=== PATIENT | female | born 1940 | race Caucasian/White ===

== ENCOUNTER 2020-08-15 14:43 | Inpatient (IN) ==
[2020-08-15] MEDS ORDERED: ATROPINE SULFATE PFS IVP PRN (15:07)
[2020-08-15] MEDS ORDERED: NITROSTAT SL PRN (15:07)
[2020-08-15] MEDS ORDERED: TYLENOL PO PRN (15:07)
[2020-08-15] MEDS ORDERED: VISTARIL INJ IM PRN (15:07)
[2020-08-15] MEDS ORDERED: TORADOL IVP STA (15:25)
[2020-08-15] MEDS ORDERED: SOLU-CORTEF 250 MG IVP SCH (15:35)
[2020-08-15] MEDS ORDERED: SOLU-CORTEF 250 MG IVP STA (15:36)
[2020-08-15 15:43] VITALS: BMI 31.1
[2020-08-15 16:23] LABS: BASOPHILS % (AUTO) 0.6 % (0.0-3.0); EOSINOPHILS # (AUTO) 0.5 K/ul (0.0-0.7); EOSINOPHILS % (AUTO) 7.2 % (0.0-7.0); HEMATOCRIT 40.5 % (37.0-47.0); HEMOGLOBIN 12.5 g/dl (12.0-16.0); IMMATURE GRANULOCYTE % (AUTO) 0.2 % (0.0-5.0); LYMPHOCYTES # (AUTO) 1.2 K/uL (0.60-3.4); MEAN CORPUSCULAR HEMOGLOBIN 25.8 pg (27.0-31.0); MEAN CORPUSCULAR HGB CONC 30.9 (31.8-35.4); MEAN CORPUSCULAR VOLUME 83.7 fl (81.0-99.0); MONOCYTES # (AUTO) 0.4 K/uL (0.4-2.0); MONOCYTES % (AUTO) 6.8 (0-10); NEUTROPHILS # (AUTO) 4.2 K/ul (2.0-6.9); NEUTROPHILS % (AUTO) 66.2 % (42.2-75.2); PLATELET COUNT 284 10^3/uL (140-440); RDW COEFFICIENT OF VARIATION 15.3 % (11.6-14.8); RED BLOOD COUNT 4.84 10^6/ul (4.20-5.40); WHITE BLOOD COUNT 6.36 K/ul (4.6-10.2)
[2020-08-15 16:34] LABS: ALANINE AMINOTRANSFERASE 10.8 U/L (0-35); ALBUMIN 4.02 g/dL (3.5-5.0); ALKALINE PHOSPHATASE 65.8 U/L (53-141); BILIRUBIN,TOTAL 0.66 mg/dL (0.2-1.3); BLOOD UREA NITROGEN 15.1 mg/dL (7-17); CALCIUM 9.21 mg/dL (8.4-10.2); CARBON DIOXIDE 30.7 mmol/L (22-30.0); CHLORIDE 100.1 mmol/L (98-107); CREATINE KINASE 31.3 U/L (30-135); CREATININE 0.81 mg/dL (0.60-1.30); GLUCOSE 94.1 mg/dL (74-106); POTASSIUM 3.65 mmol/L (3.5-5.1); SODIUM 138.3 mmol/L (134.5-145); TOTAL PROTEIN 7.67 g/dL (6.3-8.2)
[2020-08-15 16:46] LABS: TROPONIN I < 0.012 ng/ml (0.0000-0.120)
[2020-08-15 16:59] LABS: ERYTHROCYTE SEDIMENTATION RATE 28 mm/hr (0-20)
[2020-08-15] MEDS: COREG PO SCH (17:39)
[2020-08-15] MEDS: ZITHROMAX PO SCH (17:39)
[2020-08-15] MEDS: PROTONIX PO SCH (17:39)
[2020-08-15] MEDS ORDERED: TORADOL ONE (17:40)
[2020-08-15] MEDS: ROCEPHIN 1 GM/50 ML D5W 1 GM/50 ML BAG IV SCH (17:41)
[2020-08-15] MEDS ORDERED: SOLU-CORTEF 250 MG ONE (17:41)
--- NOTE | 2020-08-15 18:06 | CT ---
EXAM: CT chest with and without contrast HISTORY: Loculated pleural fluid COMPARISON: CT chest and 10/15/2020 TECHNIQUE: Serial axial images of the chest were obtained after 75 ml of Omnipaque IV contrast was a dministered. These were obtained from the lung apices to the upper abdomen. FINDINGS: The thyroid is normal. Visualized vessels are unremarkable. There is no dissection, aneu rysm or stenosis. The heart is normal in size without pericardial effusion. There are nonenlarged m ediastinal and hilar lymph nodes. There are calcified mediastinal lymph nodes present. There is no pneumothorax. There is a loculated moderate left pleural effusion. There is consolidati on in the left lower lobe and consolidation in the left upper lobe. This is unchanged. The airways are patent. Limited views of the soft tissues in the upper abdomen are unremarkable. There is multilevel degene rative disease of the spine. IMPRESSION: 1. No change in moderate left loculated effusion unchanged from prior examination. There is unchang ed adjacent atelectasis/consolidation in the left lower lobe and left upper lobe. 2. No significant interval change.
[2020-08-15 20:23] LABS: BILIRUBIN,URINE Negative (NEGATIVE); CLARITY,URINE Slightly (CLEAR); COLOR,URINE Yellow (YELLOW); GLUCOSE, URINE (UA) Negative (NEGATIVE); KETONES,URINE Negative (NEGATIVE); LEUKOCYTE ESTERASE ,URINE Trace (NEGATIVE); NITRITE,URINE Positive (NEGATIVE); PROTEIN,URINE Negative (NEGATIVE); URINE, BLOOD Negative (NEGATIVE); UROBILINOGEN,URINE 0.2 (0.2)
[2020-08-15] MEDS: PRAVACHOL PO SCH (20:23)
[2020-08-15 20:31] LABS: BACTERIA,URINE 2+ (NOT PRESENT)
[2020-08-15] MEDS: SOLU-CORTEF 250 MG IVP SCH (23:38)
[2020-08-15 23:54] LABS: CREATINE KINASE 33.1 U/L (30-135)
[2020-08-16 00:08] LABS: TROPONIN I < 0.012 ng/ml (0.0000-0.120)
[2020-08-16] MEDS: SYNTHROID PO SCH (05:57)
[2020-08-16] MEDS: PROTONIX PO SCH ×2 (05:57→17:03)
[2020-08-16] MEDS: SOLU-CORTEF 250 MG IVP SCH ×2 (06:00→13:39)
[2020-08-16 06:07] LABS: BASOPHILS % (AUTO) 0.2 % (0.0-3.0); EOSINOPHILS % (AUTO) 0.2 % (0.0-7.0); HEMATOCRIT 36.7 % (37.0-47.0); HEMOGLOBIN 11.5 g/dl (12.0-16.0); IMMATURE GRANULOCYTE % (AUTO) 0.2 % (0.0-5.0); LYMPHOCYTES # (AUTO) 0.7 K/uL (0.60-3.4); LYMPHOCYTES % (AUTO) 11.8 (10.0-50.0); MEAN CORPUSCULAR HEMOGLOBIN 26.1 pg (27.0-31.0); MEAN CORPUSCULAR HGB CONC 31.3 (31.8-35.4); MEAN CORPUSCULAR VOLUME 83.2 fl (81.0-99.0); MONOCYTES # (AUTO) 0.1 K/uL (0.4-2.0); MONOCYTES % (AUTO) 1.2 (0-10); NEUTROPHILS # (AUTO) 5.1 K/ul (2.0-6.9); NEUTROPHILS % (AUTO) 86.4 % (42.2-75.2); PLATELET COUNT 265 10^3/uL (140-440); RDW COEFFICIENT OF VARIATION 14.9 % (11.6-14.8); RED BLOOD COUNT 4.41 10^6/ul (4.20-5.40); WHITE BLOOD COUNT 5.85 K/ul (4.6-10.2)
[2020-08-16 06:18] LABS: ALANINE AMINOTRANSFERASE 12.2 U/L (0-35); ALBUMIN 3.85 g/dL (3.5-5.0); ALKALINE PHOSPHATASE 60.1 U/L (53-141); ASPARTATE AMINO TRANSFERASE 18.9 U/L (14-36); CALCIUM 9.09 mg/dL (8.4-10.2); CARBON DIOXIDE 29.5 mmol/L (22-30.0); CHLORIDE 97.5 mmol/L (98-107); CREATININE 0.84 mg/dL (0.60-1.30); GLUCOSE 148.5 mg/dL (74-106); POTASSIUM 3.88 mmol/L (3.5-5.1); SODIUM 135.8 mmol/L (134.5-145); TOTAL PROTEIN 7.36 g/dL (6.3-8.2)
[2020-08-16 06:19] LABS: BILIRUBIN,TOTAL 0.49 mg/dL (0.2-1.3)
[2020-08-16] MEDS: ROCEPHIN 1 GM/50 ML D5W 1 GM/50 ML BAG IV SCH (08:17)
[2020-08-16] MEDS: HYDROCHLOROTHIAZIDE PO SCH (08:18)
[2020-08-16] MEDS: ASPIRIN EC PO SCH (08:18)
[2020-08-16] MEDS: ZITHROMAX PO SCH (08:18)
[2020-08-16] MEDS: MICARDIS PO SCH (08:19)
[2020-08-16] MEDS: COREG PO SCH ×2 (08:19→17:04)
--- NOTE | 2020-08-16 10:21 | HP ---
DATE OF SERVICE: 08/15/2020 REASON FOR HOSPITALIZATION/HISTORY OF PRESENT ILLNESS: Left sided pleuritic type pain. 8 weeks. Pain all the time. Unable to sleep in bed. Shortness of breath with exertion. Deep breath hurts. No signs of symptoms of CHF/CAD/COVID. The patient has lost 2 pounds. PAST MEDICAL HISTORY: History of left bundle branch block Hypertension LVH Hypothyroidism Diabetes mellitus type 2 Dyslipidemia Vitamin B 12 deficiency MET syndrome Left sciatica REVIEW OF SYSTEMS: CONSTITUTIONAL: No fever, no fatigue. HEENT: No sinus drainage, no sore throat. RESPIRATORY: Cough- mild it hurts, no congestion. CARDIOVASCULAR: Atypical chest pain for coronary artery disease. No angina, CHF symptoms, palpitations. Shortness of breath. GASTROINTESTINAL: No melena or abdominal pain. No GERD. Appetite is good. Sense of taste and smell is normal. GENITOURINARY: No hematuria, no prostatism, no polyuria. GRAIN OILSEED OR PASTURE GROWER: No blackout, no dizziness, no headache, no double vision. MUSCULOSKELETAL: Osteoarthritis pain, no joint swelling. ENDOCRINE: No weight loss, Weight gain, one pound in 6 weeks. SKIN: Not dry, no rash. PSYCHIATRIC: Not anxious, no depression, no suicidal thoughts, no homicidal thoughts. SOCIAL HISTORY: Marital Status: . Alcohol Usage: No. Tobacco Usage: No. FAMILY HISTORY: Father Mother Brother 1 Sister 3 MEDICATIONS: Coreg 6.25mg BID Levothyroxine 50mcg daily Pravastatin 20mg daily Protonix 40mg PO daily ALLERGIES: No known allergies PHYSICAL EXAMINATION: V/S: Pulse 68, blood pressure 152/78, temperature 97.7, oxygen saturation 94%. BMI 30.4, height 5'5, weight 182.8 pounds. GENERAL APPEARANCE: Oriented times three. HEENT: Normal. NECK: No JVP, no bruits. RESPIRATORY: Lungs are clear. CARDIOVASCULAR: S1, S2, no S3, no murmur. No cyanosis, clubbing. No ascites. GI/ABDOMEN: No tenderness. Bowel sounds are active. EXTREMITIES: edema, pulses +1, equal. GRAIN OILSEED OR PASTURE GROWER: Deep tendon reflexes, sensory, motor and gait all normal. RECTAL: 03/2020 Dr. Peters. ASSESSMENT: 1. Left sided chest pain 2. Pleuritic pain left sided/atelectasis/Loculated left pleural fluid. 3. Refuses stress test 4. Esophageal spasms 5. Chest pain 6. GERD 7. History of left bundle branch block 8. Hypothyroidism 9. 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 Seen again 07/31/2020 same problem. PLAN: 1. Admit 2. Routine telemetry orders 3. 30mg Toradol IV one time now 4. Solu-Cortef 125mg now and 8 hourly 5. Rocephin 1 gram I V today and in AM 6. Coreg 6.25mg PO BID 7. Micardis 40mg PO BID 8. Levothyroxine 50mcg PO daily 9. Protonix 40mg BID 10.Pravastatin 20mg PO daily 11.Echo 12.Call for Pulmonary MD appointment in [place] 13.Ct scan of chest with contrast TIME SPENT: More than 70 minutes. MTDD
[2020-08-16] MEDS ORDERED: TORADOL IVP STA (11:14)
[2020-08-16] MEDS ORDERED: TORADOL IVP ONE (20:00)
[2020-08-16] MEDS: PRAVACHOL PO SCH (20:05)
[2020-08-16] MEDS ORDERED: XANAX PO SCH (21:00)
[2020-08-17 05:20] LABS: BASOPHILS % (AUTO) 0.3 % (0.0-3.0); EOSINOPHILS # (AUTO) 0.3 K/ul (0.0-0.7); EOSINOPHILS % (AUTO) 3.3 % (0.0-7.0); HEMATOCRIT 33.7 % (37.0-47.0); HEMOGLOBIN 10.9 g/dl (12.0-16.0); IMMATURE GRANULOCYTE % (AUTO) 0.1 % (0.0-5.0); LYMPHOCYTES # (AUTO) 1.6 K/uL (0.60-3.4); LYMPHOCYTES % (AUTO) 20.7 (10.0-50.0); MEAN CORPUSCULAR HEMOGLOBIN 26.8 pg (27.0-31.0); MEAN CORPUSCULAR HGB CONC 32.3 (31.8-35.4); MEAN CORPUSCULAR VOLUME 82.8 fl (81.0-99.0); MONOCYTES # (AUTO) 0.5 K/uL (0.4-2.0); MONOCYTES % (AUTO) 6.3 (0-10); NEUTROPHILS # (AUTO) 5.3 K/ul (2.0-6.9); NEUTROPHILS % (AUTO) 69.3 % (42.2-75.2); PLATELET COUNT 254 10^3/uL (140-440); RDW COEFFICIENT OF VARIATION 15.3 % (11.6-14.8); RED BLOOD COUNT 4.07 10^6/ul (4.20-5.40); WHITE BLOOD COUNT 7.63 K/ul (4.6-10.2)
[2020-08-17 05:33] LABS: ALANINE AMINOTRANSFERASE 10.5 U/L (0-35); ALBUMIN 3.57 g/dL (3.5-5.0); ALKALINE PHOSPHATASE 50.7 U/L (53-141); ASPARTATE AMINO TRANSFERASE 17.3 U/L (14-36); BILIRUBIN,TOTAL 0.36 mg/dL (0.2-1.3); BLOOD UREA NITROGEN 26.3 mg/dL (7-17); CALCIUM 8.61 mg/dL (8.4-10.2); CARBON DIOXIDE 29.3 mmol/L (22-30.0); CHLORIDE 99.5 mmol/L (98-107); CREATININE 0.87 mg/dL (0.60-1.30); GLUCOSE 106.3 mg/dL (74-106); POTASSIUM 3.21 mmol/L (3.5-5.1); SODIUM 137.4 mmol/L (134.5-145); TOTAL PROTEIN 6.97 g/dL (6.3-8.2)
[2020-08-17] MEDS: SYNTHROID PO SCH (05:34)
[2020-08-17] MEDS: PROTONIX PO SCH (05:34)
[2020-08-17] MEDS: ZITHROMAX PO SCH (08:23)
[2020-08-17] MEDS: MICARDIS PO SCH (08:23)
[2020-08-17] MEDS: ASPIRIN EC PO SCH (08:23)
[2020-08-17] MEDS: HYDROCHLOROTHIAZIDE PO SCH (08:23)
[2020-08-17] MEDS: ROCEPHIN 1 GM/50 ML D5W 1 GM/50 ML BAG IV SCH (08:24)
[2020-08-17] MEDS: COREG PO SCH (08:24)
[2020-08-17] MEDS ORDERED: PREDNISONE PO SCH (08:30)
[2020-08-17] MEDS ORDERED: K-DUR PO SCH (09:00)
--- NOTE | 2020-08-17 09:02 | PCM.PROG ---
Attending Provider: ATTENDING PROVIDER: Dr. VIJAYA SALDIVAR This patient is seen with Mindi Tamez, Nurse Practitioner. DATE OF SERVICE: 08/17/20 SUBJECTIVE: This 80 year old /WHITE F was hospitalized 08/15/20. The patient is resting comfortably. Xanax helped her sleep last night. Still describes chest wall pain at 5. Toradol only helps briefly. No fever. REVIEW OF SYSTEMS: CONSTITUTIONAL: No night sweats. No fatigue, malaise, lethargy. No fever or chills. HEENT: Eyes: No visual changes. No eye pain. No eye discharge. ENT: No runny nose. No epistaxis. No sinus pain. No odynophagia. No congestion. RESPIRATORY: No cough, no congestion. No hemoptysis. No shortness of breath. CARDIOVASCULAR: No angina symptoms. No CHF symptoms. No atypical chest pain for CAD. No palpitations. No orthopnea.. GASTROINTESTINAL: No abdominal pain. No nausea or vomiting. No diarrhea or constipation. No hematemesis. No hematochezia. GENITOURINARY: No urgency. No frequency. No dysuria. No hematuria. No obstructive symptoms. No discharge. No pain. No significant abnormal bleeding. MUSCULOSKELETAL: No musculoskeletal pain; no joint swelling. Left chest wall pain. NEUROLOGICAL: Awake, alert, oriented to time, place and person. No headache. No neck pain. No syncope. No seizures. No dizziness. PSYCHIATRIC: Not anxious. No depression. No suicidal thoughts. No homicidal thoughts. SKIN: No rash. No lesions. No wounds. ENDOCRINE: No unexplained weight loss. No weight gain. HEMATOLOGIC/LYMPHATIC: No anemia. No purpura. No petechiae. No prolonged or excessive bleeding. No palpable lymph nodes. PHYSICAL EXAMINATION: GENERAL: The patient is awake, alert and oriented, lying in bed in no distress. VITAL SIGNS: Temperature 97.8 F, Pulse 60, Respiratory Rate 23, BP 129/68, Pulse Ox 96% HEENT: Head normocephalic, atraumatic. Eyes: Extraocular muscles are intact. Pupils are equal, round and reactive to light and accommodation. Ears: No lesions. Nose appeared normal. Throat: No exudate or erythema. NECK: Supple. No JVD, no carotid bruit. No lymphadenopathy or thyromegaly. LUNGS: Diminished breath sounds bilaterally. Clear to auscultation. Percussion note normal. Chest symmetrical. HEART: S1, S2, no S3. No murmurs. No cyanosis or clubbing. No ascites. Pulses: Dorsalis pedis and posterior tibial pulses +1 to +2 both sides. ABDOMEN: Soft. Non-tender. Bowel sounds active. No CVA tenderness. No mass felt. EXTREMITIES: No edema. Full range of motion of all extremities, equal. NEUROLOGIC: No focal deficit. Cranial nerves II through XII are grossly intact. No headache, no double vision or headache. SKIN: Not dry. Intact. Turgor-normal. LYMPHATIC: No palpable lymph nodes/no lymphedema. MUSCULOSKELETAL: Normal joints with no swelling. Muscle tone is normal. LAB REVIEW: 08/17/20 05:15 08/17/20 05:15 08/17/20 05:15: Sodium 137.4, Potassium 3.21 L, Chloride 99.5, Carbon Dioxide 29.3, Anion Gap 11.81, BUN 26.3 H, Creatinine 0.87, Estimated GFR (MDRD) 63.00, BUN/Creatinine Ratio 30.22, Glucose 106.3 H, Calcium 8.61, Total Bilirubin 0.36, AST 17.3, ALT 10.5, Alkaline Phosphatase 50.7 L, Total Protein 6.97, Albumin 3.57, Globulin 3.40, Albumin/Globulin Ratio 1.05 08/17/20 05:15: WBC 7.63, RBC 4.07 L, Hgb 10.9 L, Hct 33.7 L, MCV 82.8, MCH 26.8 L, MCHC 32.3, RDW Coeff of Nuha 15.3 H, Plt Count 254, Immature Gran % (Auto) 0.1, Neut % (Auto) 69.3, Lymph % (Auto) 20.7, [place] % (Auto) 6.3, Eos % (Auto) 3.3, Baso % (Auto) 0.3, Neut # (Auto) 5.3, Lymph # (Auto) 1.6, [place] # (Auto) 0.5, Eos # (Auto) 0.3, Baso # (Auto) 0.0, Immature Gran # (Auto) 0.0 ASSESSMENT: Please see below. 1. Left sided chest pain 2. Left pleuritc pain 3. Left loculated pleural fluid 4. Hypertension 5. GERD 6. Hypokalemia PLAN: 1. Potassium 20meq BID 2. Continue Protonix 3. Continue Prednisone and Antibiotics. pot 20meq BID Plan and coordination of the patient's care discussed in the presence of Pegger and nurse. SCRIBED BY: Tomás STALEY scribed while in presence of service performed by Dr. Saldivar/Mindi Tamez APRN on 08/17/20 ([id number])
[2020-08-17] MEDS ORDERED: K-DUR PO STA (12:21)
[2020-08-17 14:06] VITALS: BP 123/64; TEMP 97.2
--- NOTE | 2020-08-17 14:44 | CM.DICTOOL ---
ADMISSION: 08/15/20 14:43 DISCHARGE: AUGUST 17, 2020 DATE OF SERVICE: 08/17/20 FINAL DIAGNOSIS LT SIDED CHEST PAIN LT. PLEURITIC PAIN LT LOCULATED PLEURAL EFFUSION HYPERTENSION GERD HYPOKALEMIA HX: COPD, SEVERE RESTRICTIVE - 08/10/2020 PFT CHEST PAIN - REFUSED STRESS TEST ESOPHAGEAL SPASM GERD LBBB HYPOTHYROIDISM HTN/LVH DM2 - A1C 6.2 ( 04/15 ) DYSLIPIDEMIA METABOLIC SYNDRONE VIT B 12 DEF ASHD LT SCIATICA PROCEDURES: COLONOSCOPY WITH AN EGD 03/2020 - DR. CHRIS [facility] Temp Pulse Resp BP Pulse Ox 97.8 F 60 23 129/68 94 L 08/17/20 05:20 08/17/20 05:20 08/17/20 05:20 08/17/20 05:20 08/17/20 10:00 TAKE THESE MEDICATIONS AT HOME Alprazolam (Alprazolam 0.5 Mg Tablet) 0.5 mg PO BEDTIME [facility] Last Admin: 08/16/20 20:05 Dose: 0.5 mg Documented by: Carvedilol (Carvedilol 6.25 Mg Tablet) 6.25 mg PO BIDWM [facility] Last Admin: 08/17/20 08:24 Dose: 6.25 mg Documented by: Hydrochlorothiazide (Hydrochlorothiazide 25 Mg Tablet) 12.5 mg PO DAILY [facility] Last Admin: 08/17/20 08:23 Dose: 12.5 mg Documented by: Levothyroxine Sodium (Levothyroxine Sodium 50 Mcg Tablet) 50 mcg PO QDAC [facility] Last Admin: 08/17/20 05:34 Dose: 50 mcg Documented by: Pantoprazole Sodium (Pantoprazole Sodium 40 Mg Tablet.) 40 mg PO BIDAC [facility] Last Admin: 08/17/20 05:34 Dose: 40 mg Documented by: Pravastatin Sodium (Pravastatin Sodium 20 Mg Tablet) 20 mg PO BEDTIME [facility] Last Admin: 08/16/20 20:05 Dose: 20 mg Documented by: Prednisone (Prednisone 20 Mg Tablet) 20 mg PO DAILYWM [facility] FOR 5 MORE DAYS Last Admin: 08/17/20 08:24 Dose: 20 mg Documented by: Telmisartan (Telmisartan 40 Mg Tablet) 40 mg PO DAILY [facility] Last Admin: 08/17/20 08:23 Dose: 40 mg Documented by: TORADOL 10 MG PO BID X 5 DAYS WITH FOOD START TODAY KEFLEX 500 MG PO TID X 10 DAYS START 08/18/2020 PREDNISONE 10 MG 2 TABS PO DAILY X 5 DAYS WITH FOOD START 08/18/2020 ALLERGIES No Known Allergies Allergy (Verified 08/15/20 20:15) DISCONTINUED MEDICATIONS NEW PRESCRIPTIONS: XANAX 0.5 MG PO @ BEDTIME TORADOL 10 MG PO BID X 5 DAYS WITH FOOD START TODAY KEFLEX 500 MG PO TID X 10 DAYS START 08/18/2020 PREDNISONE 10 MG 2 TABS PO DAILY X 5 DAYS WITH FOOD START 08/18/2020 SMOKING: NON- SMOKER DISEASE SPECIFIC EDUCATION: PLEURITIC PAIN HYPERTENSION COVID KEFLEX XANAX PREDNISONE TORADOL LAB REVIEW: 08/17/20 05:15 08/17/20 05:15 08/17/20 05:15: Sodium 137.4, Potassium 3.21 L, Chloride 99.5, Carbon Dioxide 29.3, Anion Gap 11.81, BUN 26.3 H, Creatinine 0.87, Estimated GFR (MDRD) 63.00, BUN/Creatinine Ratio 30.22, Glucose 106.3 H, Calcium 8.61, Total Bilirubin 0.36, AST 17.3, ALT 10.5, Alkaline Phosphatase 50.7 L, Total Protein 6.97, Albumin 3.57, Globulin 3.40, Albumin/Globulin Ratio 1.05 08/17/20 05:15: WBC 7.63, RBC 4.07 L, Hgb 10.9 L, Hct 33.7 L, MCV 82.8, MCH 26.8 L, MCHC 32.3, RDW Coeff of Nuha 15.3 H, Plt Count 254, Immature Gran % (Auto) 0.1, Neut % (Auto) 69.3, Lymph % (Auto) 20.7, [place] % (Auto) 6.3, Eos % (Auto) 3.3, Baso % (Auto) 0.3, Neut # (Auto) 5.3, Lymph # (Auto) 1.6, [place] # (Auto) 0.5, Eos # (Auto) 0.3, Baso # (Auto) 0.0, Immature Gran # (Auto) 0.0 PLAN: DISCHARGE HOME TODAY WITH HER : July ACTIVITY: UP TOLERATED WITH FREQUENT REST PERIODS, NO STRENUOUS ACTIVITIES STAY HOME FOR NOW. OUT FOR HEALTH RELATED FOLLOW -UPS ONLY UNTIL RELEASED PER DOCTOR DIET: HEART HEALTHY FOLLOW UP: 1). DR. SALDIVAR/MICHELE MCKENZIE APRN/ DARYL SUN APRN IN THE OFFICE, SATURDAY AUGUST 22, 2020 @ 200 PM 2). REFFERAL SENT IN TO [facility], WILL CONTACT YOU FOR AN APPOINTMENT OXYGEN: 2 L/M PER N/C AT HOME CONTINUOS, PROVIDED PER [facility] [place] OXYGEN PRECAUTIONS CODE STATUS:FULL CODE MRS JULIEN IS ALERT AND ORIENTED X 4. SHE REMAINED PLEASANT. THE MID STERNAL/LT CHEST/ UPPER LT SIDE PAIN HAS IMPROVED. NO COUGH, LUNGS CLEAR. SHE IS OUT OF BREATH WITH ACTIVITY AND STATED THIS REALLY BOTHERS HER. SKIN WARM AND DRY AND INTACT. NUTRITIONAL AND FLUID INTACT GOOD. INITIALLY HER URINE OUTPUT WAS LOW, THIS HAS IMPROVED. CONTINENT OF BOWEL AND BLADDER. LAST BM 08/15. SHE IS UP TOLERATED AND INDEPENDENT AT HOME. HAS BEEN GETTING OUT OF BREATH WITH ACTIVITY AND HAS SLOWED HER DOWN WITH HER ACTIVITY. MD MICHELE BHATIA APRN ALYCE HANNAN, APRN
[2020-08-17] MEDS ORDERED: K-DUR PO ONE (15:00)
--- NOTE | 2020-08-18 09:56 | PN ---
DATE OF SERVICE: 08/16/20 SUBJECTIVE: 80-year-old white female hospitalized with left-sided chest pain, pleuritic type. Pain according to her is a lot better. She was describing the pain as 1 to 3 on a scale of 1 to 10. Prior to admission the patient's pain was almost 3 to 8 on a 1 to 10. REVIEW OF SYSTEMS: CONSTITUTIONAL: No night sweats. No fatigue, malaise, lethargy. No fever or chills. HEENT: Eyes: No visual changes. No eye pain. No eye discharge. ENT: No runny nose. No epistaxis. No sinus pain. No sore throat. No odynophagia. No congestion. RESPIRATORY: The patient has some pain on deep breathing which has lessened. No cough, no congestion. No hemoptysis. No shortness of breath. CARDIOVASCULAR: No angina symptoms. No CHF symptoms. No atypical chest pain for CAD. No palpitations. No PND. No orthopnea. GASTROINTESTINAL: No abdominal pain. No nausea or vomiting. No diarrhea or constipation. No hematemesis. No hematochezia. GENITOURINARY: No urgency. No frequency. No dysuria. No hematuria. No obstructive symptoms. No discharge. No pain. No significant abnormal bleeding. MUSCULOSKELETAL: No musculoskeletal pain; no joint swelling. NEUROLOGICAL: No headache. No neck pain. No syncope. No seizures. No dizziness. PSYCHIATRIC: Not anxious. No depression. No suicidal thoughts. No homicidal thoughts. SKIN: No rash. No lesions. No wounds. ENDOCRINE: No unexplained weight loss. No weight gain. HEMATOLOGIC/LYMPHATIC: No anemia. No purpura. No petechiae. No prolonged or excessive bleeding. No palpable lymph nodes. PHYSICAL EXAMINATION: VITAL SIGNS: Temperature 97.7, pulse 64, respiratory rate 18, blood pressure 123/72, pulse ox 96%. HEENT: Head normocephalic, atraumatic. Eyes: Extraocular muscles are intact. Pupils are equal, round and reactive to light and accommodation. Ears: No lesions. Nose appeared normal. Throat: No exudate or erythema. NECK: Supple. No JVD, no carotid bruit. No lymphadenopathy or thyromegaly. LUNGS: Decreased breath sounds but clear to auscultation. Percussion note normal. Chest symmetrical. HEART: S1, S2, no S3. No murmurs. No cyanosis or clubbing. No ascites. Pulses: Dorsalis pedis and posterior tibial pulses +1 to +2 bilaterally. ABDOMEN: Soft. Nontender. Bowel sounds active. No CVA tenderness. No mass felt. EXTREMITIES: No edema. Full range of motion of all extremities, equal. NEUROLOGIC: No focal deficit. Cranial nerves II through XII are grossly intact. No headache, no double vision or headache. SKIN: Not dry. Intact. Turgor - normal. LYMPHATIC: No palpable lymph nodes/no lymphedema. MUSCULOSKELETAL: Normal joints with no swelling. Muscle tone is normal. LABS: Hemoglobin 11.5, hematocrit 36, WBC 5,800. Normal differential. Creatinine 0.8, BUN 19, potassium 3.8. ASSESSMENT: 1. Pleuritic type of pain. 2. Loculated left-sided pleural effusion, atelectasis. 3. Chronic lung disease. 4. Chronic anemia. PLAN: 1. Continue to give Toradol 30 mg IV twice today. 2. Solu-Cortef one dose already given 125 mg. 3. Today will start Prednisone 20 mg every morning from tomorrow. 4. Anti-reflux measures. 5. The patient already had an appointment with pulmonary physician. 6. The patient's repeat CT scan hasn't changed from the one that was done a few weeks ago. The patient's CT scan continued to show moderate left loculated effusion unchanged and also unchanged atelectasis or consolidation in the left lower lobe and left upper lobe. No significant interval change. 7. All the reports discussed with the patient. The patient's cardiac markers are negative. The patient's rhythm is sinus with left bundle branch block which is unchanged. TIME SPENT: More than 30 minutes. Plan and coordination of the patient's care discussed in the presence of nurse. SASKIA
--- NOTE | 2020-08-18 10:57 | PN ---
DATE OF SERVICE: 08/17/20 - Discharge Note SUBJECTIVE: The patient was seen and examined. The patient had echocardiogram done which showed normal LV contractility with trace to mild pericardial effusion, seems to be less than two to three months ago. The patient doesn't have any pericardial rub. Chest pain seems to be more pleuritic in character. The patient is longer than 4 to 5 months. The patient's EGD done by Dr. Peters in March showed esophageal ulcer otherwise no evidence of any esophagus or tumor noted at the time. The patient is feeling better, is up and about. The is also happy with her progress, is doing good on antiinflammatory, that is a combination of steroids and antiinflammatory. She will be discharged home on Keflex, Toradol p.o. b.i.d. for five days with meals. Prednisone 10 mg twice a day for five days with meals and also Xanax 0.5, half to one tablet at night p.r.n. She has agreed to see pulmonary physician. All the papers or medical records have been forwarded to pulmonary MShanice and he is going to be in touch with the patient. Once again, explained about loculated pleural effusion. Will also do a CT scan of the abdomen and pelvis with contrast as an outpatient. Condition at the time of discharge stable. TIME SPENT: More than 30 minutes. Plan and coordination of the patient's care discussed in the presence of nurse. SASKIA
--- NOTE | 2020-08-18 10:58 | PN ---
BILLING 08/15/20 ADMISSION DAY LEVEL 5 08/16/20 INTERMEDIATE 08/17/20 DISCHARGE MTDD
--- NOTE | 2020-08-18 12:44 | DS ---
DATE OF SERVICE: , 08/17/20 FINAL DIAGNOSIS: 1. LT SIDED CHEST PAIN 2. LT. PLEURITIC PAIN 3. LT LOCULATED PLEURAL EFFUSION 4. HYPERTENSION 5. GERD 6. HYPOKALEMIA HX: 7. COPD, SEVERE RESTRICTIVE - 08/10/2020 PFT 8. CHEST PAIN - REFUSED STRESS TEST 9. ESOPHAGEAL SPASM 10. GERD 11. LBBB 12. HYPOTHYROIDISM 13. HTN/LVH 14. DM2 - A1C 6.2 ( 04/15 ) 15. DYSLIPIDEMIA 16. METABOLIC SYNDRONE 17. VIT B 12 DEF 18. ASHD 19. LT SCIATICA PROCEDURES: 20. COLONOSCOPY WITH AN EGD 03/2020 - DR. CHRIS [facility] Temp Pulse Resp BP Pulse Ox 97.8 F 60 23 129/68 94 L 08/17/20 05:20 08/17/20 05:20 08/17/20 05:20 08/17/20 05:20 08/17/20 10:00 DISCHARGE INSTRUCTIONS: 1. DISCHARGE HOME TODAY WITH HER : July. 2. MD FOLLOW UP: 1) DR. SALDIVAR/MICHELE MCKENZIE APRN/DARYL SUN APRN IN THE OFFICE, SATURDAY AUGUST 22, 2020 @ 200 PM 2) REFERRAL SENT IN TO [facility], WILL CONTACT YOU FOR AN APPOINTMENT. 3. OXYGEN: 2 L/M PER N/C AT HOME CONTINUOS, PROVIDED PER [facility] [place] OXYGEN PRECAUTIONS. MEDICATIONS AT DISCHARGE: Alprazolam (Alprazolam 0.5 Mg Tablet) 0.5 mg PO BEDTIME [facility] Last Admin: 08/16/20 20:05 Dose: 0.5 mg Documented by: Carvedilol (Carvedilol 6.25 Mg Tablet) 6.25 mg PO BIDWM [facility] Last Admin: 08/17/20 08:24 Dose: 6.25 mg Documented by: Hydrochlorothiazide (Hydrochlorothiazide 25 Mg Tablet) 12.5 mg PO DAILY [facility] Last Admin: 08/17/20 08:23 Dose: 12.5 mg Documented by: Levothyroxine Sodium (Levothyroxine Sodium 50 Mcg Tablet) 50 mcg PO QDAC [facility] Last Admin: 08/17/20 05:34 Dose: 50 mcg Documented by: Pantoprazole Sodium (Pantoprazole Sodium 40 Mg Tablet.) 40 mg PO BIDAC [facility] Last Admin: 08/17/20 05:34 Dose: 40 mg Documented by: Pravastatin Sodium (Pravastatin Sodium 20 Mg Tablet) 20 mg PO BEDTIME [facility] Last Admin: 08/16/20 20:05 Dose: 20 mg Documented by: Prednisone (Prednisone 20 Mg Tablet) 20 mg PO DAILYWM [facility] FOR 5 MORE DAYS Last Admin: 08/17/20 08:24 Dose: 20 mg Documented by: Telmisartan (Telmisartan 40 Mg Tablet) 40 mg PO DAILY [facility] Last Admin: 08/17/20 08:23 Dose: 40 mg Documented by: TORADOL 10 MG PO BID X 5 DAYS WITH FOOD START TODAY KEFLEX 500 MG PO TID X 10 DAYS START 08/18/2020 PREDNISONE 10 MG 2 TABS PO DAILY X 5 DAYS WITH FOOD START 08/18/2020 NEW PRESCRIPTIONS: XANAX 0.5 MG PO @ BEDTIME TORADOL 10 MG PO BID X 5 DAYS WITH FOOD START TODAY KEFLEX 500 MG PO TID X 10 DAYS START 08/18/2020 PREDNISONE 10 MG 2 TABS PO DAILY X 5 DAYS WITH FOOD START 08/18/2020 DIET INSTRUCTIONS: HEART HEALTHY ACTIVITY: UP TOLERATED WITH FREQUENT REST PERIODS, NO STRENUOUS ACTIVITIES STAY HOME FOR NOW. OUT FOR HEALTH RELATED FOLLOW -UPS ONLY UNTIL RELEASED PER DOCTOR SMOKING: NON-SMOKER DISEASE SPECIFIC EDUCATION: PLEURITIC PAIN HYPERTENSION COVID KEFLEX XANAX PREDNISONE TORADOL HOSPITAL COURSE: 80-year-old white female was seen in the office on 08/15/20 with left-sided pain which was more like pleuritic type, more on deep inspiration. The patient says that she is unable to sleep at night. The pain is more or less constant. Duration of this pain and off and on since March 2020. At the time her pain was more epigastric type and the patient underwent EGD by Dr. Chris and was found to have esophageal ulcer. She was put on Protonix and pain improved to some extent but that component of pleuritic type of pain persisted. The patient had CT scan of the chest done on 07/31/20 and 08/15/20, both of them showed loculated moderate left pleural effusion with consolidation in the left lower lobe with possibility of atelectasis. The patient during the stay in the hospital was given Toradol IV 30 mg daily along with steroids IV, Solu-Cortef. She was put on Rocephin. Besides that the patient had incidental finding of E. coli urinary tract infection sensitive to Ceftriaxone. During the two day stay the patient's pain was practically under control. She felt a lot better. The patient doesn't have any symptoms of reflux disease, does not have any PND, orthopnea, exertional chest discomfort. Echo showed trace to mild pericardial effusion. The CT scan of the chest didn't show any pericardial effusion. She doesn't have any pericarditis clinically. The patient was discharged on Toradol 10 mg twice a day for five days along with Prednisone 10 twice a day for five days with antibiotics to be taken for 10 days. The patient's condition at the time of discharge stable. She is to be seen by pulmonary physician. The records have been sent to pulmonary physician who is going to contact the physician. The patient was advised to return to the emergency room or to the office in case of worsening chest pain or any other fever, chills or any other problems. She is to be seen in the office in four to five days on followup. At time of discharge stable. ADDENDUM: The patient has left-sided chest pain but at times says she continued to have some epigastric discomfort. The patient has some weight loss but according to her she has been on a diet. Appetite has been normal. CT scan of the abdomen and pelvis with contrast has been scheduled to be done as an outpatient. LABORATORY DATA: 08/17/20 05:15: Sodium 137.4, Potassium 3.21 L, Chloride 99.5, Carbon Dioxide 29.3, Anion Gap 11.81, BUN 26.3 H, Creatinine 0.87, Estimated GFR (MDRD) 63.00, BUN/Creatinine Ratio 30.22, Glucose 106.3 H, Calcium 8.61, Total Bilirubin 0.36, AST 17.3, ALT 10.5, Alkaline Phosphatase 50.7 L, Total Protein 6.97, Albumin 3.57, Globulin 3.40, Albumin/Globulin Ratio 1.05 08/17/20 05:15: WBC 7.63, RBC 4.07 L, Hgb 10.9 L, Hct 33.7 L, MCV 82.8, MCH 26.8 L, MCHC 32.3, RDW Coeff of Nuha 15.3 H, Plt Count 254, Immature Gran % (Auto) 0.1, Neut % (Auto) 69.3, Lymph % (Auto) 20.7, [place] % (Auto) 6.3, Eos % (Auto) 3.3, Baso % (Auto) 0.3, Neut # (Auto) 5.3, Lymph # (Auto) 1.6, [place] # (Auto) 0.5, Eos # (Auto) 0.3, Baso # (Auto) 0.0, Immature Gran # (Auto) 0.0 TIME SPENT: More than 60 minutes. MTDD
--- NOTE | 2020-08-18 12:46 | PN ---
BILLING 08/15/20 ADMISSION DAY LEVEL 5 08/16/20 INTERMEDIATE 08/17/20 DISCHARGE MTDD
--- NOTE | 2020-08-21 13:48 | ECHO2D ---
Date of Exam: 08/17/20 Ordering Physician: DR. VIJAYA SALDIVAR Room #:[id number] Reason for Echo: PERICARDIAL EFFUSION, SOB M-Mode Normal Adult Results LV Dimensions Normal Adult Results AoV Opening excursions >1.6 >1.6 LVEDD-base- 3.5-5.8 4.6 Ao root dimensions 2.0-3.7 3.3 LVESD-base- 3.1-4.6 L. Atrium dimensions 1.9-3.8 4.1 Post. Wall thickness 0.8-1.1 1.2 IV septum (thickness) 0.7-1.2 1.3 Post. Wall excursion 0.72-1.3 NORMAL Septal motion NORMAL Systolic motion R. Ventricular cavity 1.5-2.0 NORMAL LVEF 60% 54% Paradoxical septal wall motion NORMAL 2-D : Mitral valve prolapse noted left parasternal long axis and apical four chamber view. enlarged left atrial cavity--mild pericardial effusion, no thrombus, calcific mitral valve annulus M-MODE: MV: MITRAL VALVE PROLAPSE NOTE/ CALCIFIC ANNULUS AV: NORMAL TV: NORMAL PV: CHAMBER SIZE: ENLARGED LEFT ATRIAL CAVITY WALL MOTION: NORMAL PERICARDIUM: MILD TO TRACE PERICARDIAL EFFUSION INTERPRETATION: 1. LEFT VENTRICULAR HYPERTROPHY WITH ENLARGED LEFT ATRIAL CAVITY 2. NORMAL LEFT VENTRICLE CONTRACTILITY 3. MITRAL VALVE PROLAPSE 4. CALCIFIC MITRAL VALVE ANNULUS 5. TRACE TO MILD PERICARDIAL EFFUSION UN[facility]ANGED 06/2020 [facility]
== END 2020-08-17 16:00 | disposition home or self-care (01) | DRG 187 ==
LOC: MEDSURG B 14:43
PROVIDERS: ADMIT Internal Medicine; ATTEND Internal Medicine
DX: J90 Pleural effusion, not elsewhere classified; E53.8 Deficiency of other specified B group vitamins; E11.9 Type 2 diabetes mellitus without complications; E87.6 Hypokalemia; J98.11 Atelectasis; J44.9 Chronic obstructive pulmonary disease, unspecified; E78.5 Hyperlipidemia, unspecified; K21.9 Gastro-esophageal reflux disease without esophagitis; D64.9 Anemia, unspecified; I10 Essential (primary) hypertension